=== PATIENT | female | born 1980 | race Hispanic/Latino ===

== ENCOUNTER 2020-05-28 05:45 | Inpatient (IN) | payer SELFPAY ==
[2020-05-28] MEDS ORDERED: ONDANSETRON 4 MG/2 ML VIAL ONE (06:25)
[2020-05-28] MEDS ORDERED: MORPHINE 4 MG/ML SYR ONE (06:25)
[2020-05-28] MEDS ORDERED: NA CHLORIDE 0.9% 1,000 ML ONE ×2 (06:25→10:52)
[2020-05-28 06:27] LABS: Absolute Lymphocytes (CBC) 1.2 K/uL (0.7-4.9); Basophils % 0.5 % (0-1.3); Hematocrit 37.6 % (36.0-45.0); Lymphocytes % 16.3 % (15.3-44.8); MPV 9.2 fL (7.6-11.3)
[2020-05-28 06:41] LABS: ALT/SGPT 39 U/L (12-78); AST/SGOT 15 U/L (15-37); Alkaline Phosphatase 58 U/L (45-117); BUN Blood Urea Nitrogen 15 mg/dL (7-18); Bicarbonate 24 mmol/L (21-32); Bilirubin Direct 0.1 mg/dL (0-0.2); Bilirubin Total 0.4 mg/dL (0.2-1.0); Glucose Level 117 mg/dL (74-106); Lipase 83 U/L (73-393); Potassium 3.7 mmol/L (3.5-5.1); Protein, Total 7.7 g/dL (6.4-8.2); Sodium Level 138 mmol/L (136-145); Troponin (Emerg Dept Use Only) < 0.02 ng/mL (0.0-0.045)
--- NOTE | 2020-05-28 07:42 | RAD REPORT ---
EXAM DESCRIPTION: CTAbdomen Pelvis W Contrast - 05/28/2020 7:25 am CLINICAL HISTORY: Abdominal pain. ABD PAIN COMPARISON: No comparisons TECHNIQUE: Biphasic CT imaging of the abdomen and pelvis was performed with 100 ml non-ionic IV cont rast. All CT scans are performed using dose optimization technique as appropriate and may include automated exposure control or mA/KV adjustment according to patient size. FINDINGS: The lung bases are clear. 10 mm cyst is seen in the right lobe liver, benign in appearance. No aggressive liver lesion or bilia ry dilatation. Pericholecystic fluid is seen with enhancement of the gallbladder mucosa. The spleen, pancreas, adrenal glands and kidneys are within normal limits. No bowel obstruction, free air, free fluid or abscess. The appendix is normal. No evidence of signi ficant lymphadenopathy. Transitional vertebral body is present lowest lumbar level. IMPRESSION: Acute cholecystitis is suspected.
[2020-05-28 09:25] LABS: Urine Blood TRACE (NEG); Urine Glucose NEGATIVE (NEG); Urine Protein TRACE (NEG); Urine Specific Gravity >1.030 (1.005-1.030); Urine pH 5.5 (5.0-7.0)
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
[2020-05-28] MEDS ORDERED: PIPER/TAZO/NS 3.375gm 3.375 GM/100 ML BAG ONE (10:52)
--- NOTE | 2020-05-28 10:53 | RAD REPORT ---
EXAM DESCRIPTION: US - Abdomen Exam Limited - 05/28/2020 9:03 am CLINICAL HISTORY: ABD PAIN COMPARISON: No comparisons FINDINGS: The gallbladder demonstrates small gallstones and gall sludge. Significant thickening of t he wall with gallbladder with pericholecystic fluid present. The common bile duct is within the limit s of normal measuring 5 mm. The liver demonstrates no findings of intrahepatic biliary dilatation. IMPRESSION: Acute cholecystitis.
[2020-05-28] MEDS ORDERED: ONDANSETRON 4 MG/2 ML VIAL IV PRN (12:12)
--- NOTE | 2020-05-28 12:39 | RAD REPORT ---
EXAM DESCRIPTION: RAD - Chest Single View - 05/28/2020 6:50 am CLINICAL HISTORY: CHEST PAIN Chest pain. COMPARISON: No comparisons FINDINGS: Portable technique limits examination quality. The lungs are grossly clear. The heart is normal in size. No displaced fractures. IMPRESSION: No acute intrathoracic process suspected.
[2020-05-28] MEDS: NA CHLORIDE 0.9% 1,000 ML IV SCH ×2 (13:00→20:42)
[2020-05-28 13:03] VITALS: BMI 30.2
[2020-05-28] MEDS ORDERED: POTASSIUM CL SA 10 MEQ TAB PO ONE (13:34)
[2020-05-28] MEDS: MORPHINE 4 MG/ML SYR IV PRN (14:01)
[2020-05-28] MEDS: PIPER/TAZO/NS 3.375gm 3.375 GM/100 ML BAG IVPB SCH (16:00)
[2020-05-28] MEDS: INSULIN -REGULAR HUMAN 50 UNIT/0.5 ML ML SQ SCH ×2 (16:07→21:00)
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
[2020-05-29] MEDS: PIPER/TAZO/NS 3.375gm 3.375 GM/100 ML BAG IVPB SCH ×2 (00:48→08:20)
[2020-05-29 02:57] VITALS: O2SAT 99
[2020-05-29] MEDS: NA CHLORIDE 0.9% 1,000 ML IV SCH ×2 (03:51→12:12)
[2020-05-29 04:44] LABS: Absolute Lymphocytes (CBC) 1.6 K/uL (0.7-4.9); Basophils % 0.3 % (0-1.3); Hematocrit 34.6 % (36.0-45.0); Lymphocytes % 41.2 % (15.3-44.8); MPV 9.5 fL (7.6-11.3); RBC Red Blood Cell Count 3.63 M/uL (3.86-4.86)
[2020-05-29 04:56] LABS: Albumin 3.1 g/dL (3.4-5.0); Bilirubin Direct 0.2 mg/dL (0-0.2); Bilirubin Total 0.6 mg/dL (0.2-1.0); Magnesium 2.2 mg/dL (1.8-2.4); Phosphorus 2.9 mg/dL (2.5-4.9); Potassium 4.1 mmol/L (3.5-5.1); Protein, Total 6.2 g/dL (6.4-8.2)
[2020-05-29] MEDS: INSULIN -REGULAR HUMAN 50 UNIT/0.5 ML ML SQ SCH ×2 (07:30→11:30)
[2020-05-29] MEDS: MORPHINE 4 MG/ML SYR IV PRN (09:07)
[2020-05-29 13:09] VITALS: BP 113/69; TEMP 97.5
--- NOTE | 2020-05-29 14:15 | P.DS ---
Admission Date: 05/29/20 Discharge Date: 05/29/20 Disposition: ROUTINE DISCHARGE Discharge Condition: GOOD Reason for Admission: cholecystitsi Brief History of Present Illness: Patient is a 40 year old woman who presented to ER wt 5 days of RUQ abdominal pain. Hospital Course: Patient admitted, felt better in ER and was pain free when I saw patient. She was given liquid diet which she tolerated well, felt great. Discussed surgical options with patient and she opted for outpatient surgery rather than inpatient surgery after discussion about surgery vs delayed surgery. Vital Signs/Physical Exam: Temp Pulse Resp BP Pulse Ox 97.5 F 60 16 113/69 98 05/29/20 12:00 05/29/20 12:00 05/29/20 12:00 05/29/20 12:00 05/29/20 12:00 General: Alert, In no apparent distress, Cooperative HEENT: Mucous membr. moist/pink Respiratory: Clear to auscultation bilaterally Cardiovascular: Regular rate/rhythm Gastrointestinal: Soft and benign, Non-distended, No ascites, No tenderness, No masses, No rebound, No guarding Neurological: Normal speech Laboratory Data at Discharge: WBC 3.8 K/uL (4.3-10.9) L D 05/29/20 03:51 Hgb 12.0 g/dL (12.0-15.0) 05/29/20 03:51 Hct 34.6 % (36.0-45.0) L 05/29/20 03:51 Plt Count 161 K/uL (152-406) 05/29/20 03:51 Sodium 140 mmol/L (136-145) 05/29/20 03:51 Potassium 4.1 mmol/L (3.5-5.1) 05/29/20 03:51 BUN 7 mg/dL (7-18) 05/29/20 03:51 Creatinine 0.89 mg/dL (0.55-1.3) 05/29/20 03:51 Glucose 78 mg/dL (74-106) 05/29/20 03:51 Phosphorus 2.9 mg/dL (2.5-4.9) 05/29/20 03:51 Magnesium 2.2 mg/dL (1.8-2.4) 05/29/20 03:51 Total Bilirubin 0.6 mg/dL (0.2-1.0) 05/29/20 03:51 AST 14 U/L (15-37) L 05/29/20 03:51 ALT 25 U/L (12-78) 05/29/20 03:51 Alkaline Phosphatase 47 U/L (45-117) 05/29/20 03:51 Lipase 98 U/L (73-393) 05/29/20 03:51 Home Medications: NK [No Home Meds] 05/28/20 Patient Discharge Instructions: - follow up to arrange laparoscopic cholecystectomy Diet: [place] Activity: No lifting more than 10 lbs Followup: Srinath Coronado MD [ACTIVE - CAN ADMIT] -
== END 2020-05-29 14:40 | disposition home or self-care (01) | DRG 444 ==
LOC: ER 05:45 → ERHOLD 10:06 → 2ND 12:29 → OBSVTOIN 05-29 07:33
PROVIDERS: ADMIT Surgery; ATTEND Surgery
DX: K81.0 Acute cholecystitis (principal); U07.1 COVID-19; K59.00 Constipation, unspecified
CPT/HCPCS: 36415; 71045; 74177; 76705; 80048; 80076; 81003; 81025; 82947; 83690; 83735; 84100; 84484; 85025; 93005; 96361; 96365; 96375; 99285; G0378; J2405; J2543; J7030; Q9967; U0002